=== PATIENT | male | born 1980 | race African-American/Black ===

== ENCOUNTER 2018-01-10 08:36 | Emergency (ER) | payer MEDICAID ==
[~2018-01-10] VITALS: Ht 185.4 cm; Wt 125.0 kg
[2018-01-10 08:44] VITALS: BP 128/91
[2018-01-10] MEDS ORDERED: BACITRACIN ZINC OINT UDPKT TOP ONE (10:00)
== END 2018-01-10 10:51 | disposition home or self-care (01) ==
LOC: ER 08:36
DX: S61.213A Laceration without foreign body of left middle finger without damage to nail, initial encounter (principal); F12.10 Cannabis abuse, uncomplicated; F17.200 Nicotine dependence, unspecified, uncomplicated; Z87.828 Personal history of other (healed) physical injury and trauma; W26.0XXA Contact with knife, initial encounter; Y93.89 Activity, other specified; Y92.520 Airport as the place of occurrence of the external cause; Y99.8 Other external cause status
CPT/HCPCS: 99283

== ENCOUNTER 2018-10-11 12:19 | Emergency (ER) | payer MEDICAID ==
[~2018-10-11] VITALS: Ht 185.4 cm; Wt 114.0 kg
[2018-10-11 14:07] LABS: CLARITY URINE CLEAR (CLEAR); COLOR URINE YELLOW (YELLOW); KETONES URINE NEGATIVE (NEGATIVE); LEUKOCYTE ESTERASE URINE TRACE (NEGATIVE); NITRITE URINE NEGATIVE (NEGATIVE); OCCULT BLOOD URINE NEGATIVE (NEGATIVE); PH URINE 5.5 (4.5-8.0); PROTEIN URINE NEGATIVE (NEGATIVE); SPECIFIC GRAVITY URINE 1.027 (1.005-1.030); UROBILINOGEN URINE 0.2 E.U./dL (0.2-1.0)
[2018-10-11] MEDS ORDERED: CEFTRIAXONE SODIUM 250 MG/VIAL IM ONE (14:30)
[2018-10-11] MEDS ORDERED: AZITHROMYCIN 500 MG TABLET PO ONE (14:30)
[2018-10-11] MEDS ORDERED: LIDOCAINE HCL 1% 20ML VIAL (Pyxis) INJ INFIL ONE (14:30)
[2018-10-11 15:34] VITALS: BP 125/63
== END 2018-10-11 15:37 | disposition home or self-care (01) ==
LOC: ER 12:19
DX: N34.2 Other urethritis (principal); F12.10 Cannabis abuse, uncomplicated
CPT/HCPCS: 81003; 87086; 96372; 99283; J0696; J3490

== ENCOUNTER 2018-11-25 19:32 | Emergency (ER) | payer SELFPAY ==
[~2018-11-25] VITALS: Ht 185.4 cm; Wt 117.0 kg
[2018-11-25 20:49] VITALS: BP 130/76
== END 2018-11-25 22:05 | disposition home or self-care (01) ==
LOC: ER 21:18
DX: H10.9 Unspecified conjunctivitis (principal); F12.10 Cannabis abuse, uncomplicated; F17.200 Nicotine dependence, unspecified, uncomplicated
CPT/HCPCS: 99283

== ENCOUNTER 2018-11-30 12:24 | Emergency (ER) | payer SELFPAY ==
[~2018-11-30] VITALS: Ht 182.9 cm; Wt 117.0 kg
[2018-11-30] MEDS ORDERED: ONDANSETRON HCL 4MG/2ML INJ IV ONE ×2 (13:15→15:00)
[2018-11-30] MEDS ORDERED: SODIUM CHLORIDE 0.9% 1,000 ML IV ONE (13:15)
[2018-11-30 13:28] LABS: BASOPHILS % 0.4 % (0.0-2.0); HEMATOCRIT. 50.9 % (42.0-52.0); HEMOGLOBIN. 16.9 g/dL (14.0-18.0); LYMPHOCYTES % 8.8 % (20.0-50.0); MEAN CORPUSCULAR HEMOGLOBIN 28.7 pg (28.0-32.0); MEAN CORPUSCULAR VOLUME 86.5 fL (80.0-94.0); MEAN PLATELET VOLUME 10.3 fl (7.4-10.4); MONOCYTES % 6.3 % (2.0-8.0); NEUTROPHILS % 84.5 % (40.0-76.0); PLATELET 107 x1000/uL (130-400); RED BLOOD CELL COUNT 5.89 mill/uL (4.7-6.1)
[2018-11-30 13:35] LABS: CHLORIDE 93 mEq/L (98-107)
[2018-11-30 13:40] LABS: CLARITY URINE CLOUDY (CLEAR); COLOR URINE DARK YELLOW (YELLOW); KETONES URINE NEGATIVE (NEGATIVE); LEUKOCYTE ESTERASE URINE NEGATIVE (NEGATIVE); NITRITE URINE NEGATIVE (NEGATIVE); OCCULT BLOOD URINE 3+ (NEGATIVE); PH URINE 5.5 (4.5-8.0); PROTEIN URINE 4+ (NEGATIVE); SPECIFIC GRAVITY URINE 1.035 (1.005-1.030)
[2018-11-30 13:43] LABS: INR 1.1; PROTHROMBIN TIME 11.5 sec (9.6-11.0)
[2018-11-30] MEDS ORDERED: VISCOUS LIDOCAINE 2% 15 ML UDC PO STA (14:49)
[2018-11-30] MEDS ORDERED: MAGNESIUM/ALUMINUM HYDROXIDE/SIMETHICONE 30ML UDC PO STA (14:49)
[2018-11-30] MEDS ORDERED: DICYCLOMINE HCL 10MG/ML 2ML AMP IM ONE (15:00)
[2018-11-30 15:15] VITALS: BP 128/65
== END 2018-11-30 16:08 | disposition home or self-care (01) ==
LOC: ER 12:24
DX: R11.2 Nausea with vomiting, unspecified (principal); R19.7 Diarrhea, unspecified; K70.9 Alcoholic liver disease, unspecified; K85.20 Alcohol induced acute pancreatitis without necrosis or infection; R74.0 Nonspecific elevation of levels of transaminase and lactic acid dehydrogenase [LDH]; R31.9 Hematuria, unspecified; F10.10 Alcohol abuse, uncomplicated; Y90.9 Presence of alcohol in blood, level not specified; R73.9 Hyperglycemia, unspecified; R03.0 Elevated blood-pressure reading, without diagnosis of hypertension; F12.90 Cannabis use, unspecified, uncomplicated
CPT/HCPCS: 36415; 80053; 81003; 83690; 85025; 85610; 96361; 96372; 96374; 96376; 99283; J0500; J2405; J7030

== ENCOUNTER 2020-09-10 08:30 | Emergency (ER) | payer MEDICAID ==
[~2020-09-10] VITALS: Ht 185.4 cm; Wt 118.1 kg
[2020-09-10] MEDS ORDERED: LIDOCAINE 1%/EPI 1:100,000 10 ML VIAL IJ ONE (08:45)
[2020-09-10] MEDS ORDERED: TETANUS, DIPHTHERIA, PERTUSSIS VAC/PF 0.5ML (>7YR OLD) IM ONE (08:45)
[2020-09-10] MEDS ORDERED: BACITRACIN ZINC OINT UDPKT TOP ONE (08:45)
[2020-09-10] MEDS ORDERED: ACETAMINOPHEN WITH CODEINE 300/30MG TABLET PO ONE (09:00)
[2020-09-10] MEDS ORDERED: LIDOCAINE HCL/EPINEPHRINE 1%-EPI 1:100,000 50 ML VIAL INFIL NR (09:00)
[2020-09-10] MEDS ORDERED: IBUP-2028 MT (10:38)
[2020-09-10 10:53] VITALS: BP 125/88
== END 2020-09-10 11:05 | disposition home or self-care (01) ==
LOC: ER 08:30
DX: S41.112A Laceration without foreign body of left upper arm, initial encounter (principal); W26.8XXA Contact with other sharp object(s), not elsewhere classified, initial encounter; Y93.89 Activity, other specified; Y92.89 Other specified places as the place of occurrence of the external cause; Y99.8 Other external cause status; F12.10 Cannabis abuse, uncomplicated; M79.5 Residual foreign body in soft tissue
CPT/HCPCS: 12005; 73090; 90471; 90715; 99283; J3490

== ENCOUNTER 2021-04-27 12:41 | Emergency (ER) | payer BC, MEDICAID ==
[~2021-04-27] VITALS: Ht 185.4 cm; Wt 117.0 kg
[~2021-04-27 12:41] MED LIST: IBUP-2028 MT
[2021-04-27] MEDS ORDERED: KETOROLAC 60MG/2ML VIAL IM STA (15:15)
[2021-04-27] MEDS ORDERED: NAPR-681 PO (16:15)
[2021-04-27 16:25] VITALS: BP 136/75
== END 2021-04-27 16:25 | disposition home or self-care (01) ==
LOC: ER 12:41
DX: M25.512 Pain in left shoulder (principal)
CPT/HCPCS: 73030; 96372; 99283; J1885; A4565